=== PATIENT | male | born 1950 | race American Indian/Alaskan Native ===

== ENCOUNTER 2016-08-17 14:18 | Outpatient (CLI) | payer MEDICARE ==
--- NOTE | 2016-08-17 14:55 | XRay Report ---
ROUTINE CHEST, TWO VIEWS: HISTORY: Cough. The trachea, heart, mediastinal contour, lung miles and bony thorax are unremarkable. IMPRESSION: Unremarkable chest x-ray.
== END 2016-08-17 14:19 | disposition home or self-care (01) ==
LOC: SPVIMAG 14:18
PROVIDERS: ATTEND Internal Medicine
DX: J20.8 Acute bronchitis due to other specified organisms (principal)
CPT/HCPCS: 71020